=== PATIENT | female | born 1950 | race African-American/Black ===

== ENCOUNTER 2018-04-16 08:49 | Outpatient (CLI) | payer OTHER ==
[~2018-04-16 08:49] MED LIST: AMBIEN5 MG PO; ATACAND4 MG PO; HYZAAR 100-251 UDTAB; NORVASC5 MG; PROVENTIL2 MG PO; SINGULAIR10 MG PO
== END 2018-04-16 08:51 | disposition home or self-care (01) ==
LOC: SONOGRAMA 08:49
DX: S83.282A Other tear of lateral meniscus, current injury, left knee, initial encounter (principal)

== ENCOUNTER 2019-03-27 07:53 | Outpatient (CLI) | payer OTHER | END 2019-03-27 07:56 | disposition home or self-care (01) | LOC: SONOGRAMA 07:53 → MAMO-SONO 08:15 | DX: S80.01XA Contusion of right knee, initial encounter (principal); M25.561 Pain in right knee ==

== ENCOUNTER 2019-04-14 08:59 | Outpatient (CLI) | payer OTHER | END 2019-04-14 10:27 | disposition home or self-care (01) | LOC: NUCLEAR 08:59 | DX: M81.0 Age-related osteoporosis without current pathological fracture (principal); Z13.820 Encounter for screening for osteoporosis ==

== ENCOUNTER 2022-06-30 19:10 | Emergency (ER) | payer OTHER ==
[~2022-06-30] VITALS: Ht 149.9 cm; Wt 79.4 kg
== END 2022-06-30 23:27 | disposition home or self-care (01) ==
LOC: ER 19:10
DX: B34.9 Viral infection, unspecified (principal); Z20.822 Contact with and (suspected) exposure to COVID-19